=== PATIENT | male | born 1960 | race Hispanic/Latino ===

== ENCOUNTER 2019-03-19 15:04 | Emergency (ER) | payer SELFPAY ==
[2019-03-19 15:25] LABS: Bilirubin Negative (Negative); Blood, Urine Small (Negative); Clarity CLOUDY (Clear); Glucose, Urine (Dipstick) Negative (Negative); Leukocyte Trace (Negative); Nitrite Negative (Negative); Protein, Urine (Dipstick) Negative (Neg-Trace); Urobilinogen 0.2 mg/dL (0.2-1.0)
[2019-03-19 15:27] LABS: Hyaline Casts/LPF 0-3 HYALINE CAST LPF (0-3 Hyaline); Squamous Epithelial 0-3 HPF (0-3)
[2019-03-19 15:28] LABS: Sperm-AUWi Flag 756.9 (0-9.9)
[2019-03-19 15:38] LABS: Bacteria/HPF None Seen HPF (None Seen); Sperm/HPF 3+ HPF (None Seen); WBC/HPF 0-3 HPF (0-3)
== END 2019-03-19 17:25 | disposition home or self-care (01) ==
LOC: ERS 15:04
DX: R30.0 Dysuria (principal)
CPT/HCPCS: 81003; 81015; 99283